=== PATIENT | female | born 1985 ===

== ENCOUNTER 2017-07-24 17:49 | Emergency (ER) | payer OTHER ==
[2017-07-24 19:37] VITALS: BP 123/80; PULSE 88; RESP 16; TEMP 98.1; O2SAT 99
--- NOTE | 2017-07-24 21:48 | ED PDOC ---
HPI: General Adult Time Seen by Provider: 07/24/17 20:53 Chief Complaint (Nursing): Back Pain Chief Complaint (Provider): Back pain, left leg pain History Per: Patient History/Exam Limitations: no limitations Onset/Duration Of Symptoms: Hrs Have you had recent travel within the past 21 days to any of the following countries: [place], [place], [place] or [place]?: No Current Symptoms Are (Timing): Still Present Additional History Per: Patient Additional Complaint(s): 31yo female with no past medical history, presents to ER with complaints of lower back pain, left upper leg pain and left wrist pain after a workplace injury around 11am today. Patient states she pushed a refrigerator that was on an unstable surface and as it was falling, she attempted to catch it, injuring herself in the process. She also reports an episode of numbness to her left upper leg and reports the back pain is radiating up her back. She denies any weakness. No other medical complaints. Past Medical History Reviewed: Historical Data, Nursing Documentation, Vital Signs Vital Signs: Last Vital Signs Temp 98.1 F 07/24/17 19:32 Pulse 88 07/24/17 19:32 Resp 16 07/24/17 19:32 BP 123/80 07/24/17 19:32 Pulse Ox 99 07/24/17 21:51 - Medical History PMH: No Chronic Diseases - Surgical History Surgical History: No Surg Hx - Family History Family History: States: No Known Family Hx - Home Medications Home Medications: Ambulatory Orders Medication Instructions Recorded Cyclobenzaprine [Cyclobenzaprine 10 mg PO Q8H #20 tab 07/24/17 HCl] Ibuprofen [Motrin Tab] 800 mg PO Q6H PRN #20 tab 07/24/17 - Allergies Allergies/Adverse Reactions: Allergies Allergy/AdvReac Type Severity Reaction Status Date / Time No Known Allergies Allergy Verified 07/24/17 19:32 Review of Systems ROS Statement: Except As Marked, All Systems Reviewed And Found Negative Musculoskeletal: Positive for: Back Pain, Hand Pain (left wrist), Leg Pain ( left upper leg) Neurological: Positive for: Numbness. Negative for: Weakness Physical Exam - Reviewed Nursing Documentation Reviewed: Yes Vital Signs Reviewed: Yes - Physical Exam Appears: Positive for: Non-toxic Head Exam: Positive for: ATRAUMATIC, NORMAL INSPECTION, NORMOCEPHALIC Skin: Positive for: Normal Color Eye Exam: Positive for: Normal appearance Neck: Positive for: Supple Cardiovascular/Chest: Positive for: Regular Rate, Rhythm Respiratory: Positive for: Normal Breath Sounds. Negative for: Respiratory Distress Back: Positive for: Normal Inspection. Negative for: L CVA Tenderness, R CVA Tenderness, Vertebral Tenderness, Decreased ROM Extremity: Positive for: Normal ROM, Tenderness (tenderness noted to anterior surface of left thigh) Neurologic/Psych: Positive for: Alert, Oriented. Negative for: Motor/Sensory Deficits - ECG O2 Sat by Pulse Oximetry: 99 (RA) Pulse Ox Interpretation: Normal Medical Decision Making Medical Decision Making: Impression: Musculoskeletal pain after injury Plan: -- Flexeril 10 mg PO -- Motrin 600 mg PO -- XR Lumbar Spine -- XR Left femur Fermur and LS x-ray normal. Scribe Attestation: Documented by Faina Brasher acting as a scribe for POLLY Boyce Provider Attestation: All medical record entries made by the Scribe were at my direction and personally dictated by me. I have reviewed the chart and agree that the record accurately reflects my personal performance of the history, physical exam, medical decision making, and the department course for this patient. I have also personally directed, reviewed, and agree with the discharge instructions and disposition. Disposition - Clinical Impression Clinical Impression: Back pain, Injury while undertaking manual work, Hematoma and contusion - Patient ED Disposition Is Patient to be Admitted: No - Disposition Disposition: Routine/Home Disposition Time: 22:49 Condition: GOOD Prescriptions: Cyclobenzaprine [Cyclobenzaprine HCl] 10 mg PO Q8H #20 tab Ibuprofen [Motrin Tab] 800 mg PO Q6H PRN #20 tab PRN Reason: Pain Instructions: Low Back Pain in Adults Forms: [facility] (Togolese), [facility] ED School/Work Excuse
--- NOTE | 2017-07-25 09:20 | RAD ---
PROCEDURE: Left Femur Radiographs. HISTORY: Left thigh pain COMPARISON: None. TECHNIQUE: AP and Lateral Radiographs of the left femur. FINDINGS: FEMUR: No acute fracture. Small ossicle adjacent to the acetabulum. Bony protrusion along the joe superior surface of the femoral neck. SOFT TISSUES: Normal. OTHER FINDINGS: None. IMPRESSION: No demonstrated acute fracture or dislocation. Bony protrusion along the anterosuperior surface of the left femoral neck can be seen in the setting of femoroacetabular impingement. Small ossicle adjacent to the left acetabulum. ER notification submitted electronically.
--- NOTE | 2017-07-25 09:21 | RAD ---
PROCEDURE: Radiographs of the Lumbar Spine. HISTORY: back pain s/p injury at work COMPARISON: No prior. FINDINGS: BONES: Normal alignment. No listhesis. No fracture. DISC SPACES: Unremarkable. OTHER FINDINGS: None. IMPRESSION: Unremarkable radiographs of the lumbar spine.
== END 2017-07-24 23:18 | disposition home or self-care (01) ==
LOC: H.ER 17:49
DX: M54.9 Dorsalgia, unspecified (principal); M79.1 Myalgia; X50.9XXA Other and unspecified overexertion or strenuous movements or postures, initial encounter; Y99.0 Civilian activity done for income or pay